=== PATIENT | female | born 1955 | race Caucasian/White ===

== ENCOUNTER 2018-12-03 12:43 | Inpatient (IN) | payer OTHER ==
[~2018-12-03] VITALS: Ht 160 cm; Wt 85.3 kg
[2018-12-03] MEDS ORDERED: SOD CHLORIDE 0.9% 1,000 ML IV STA (12:52)
[2018-12-03] MEDS ORDERED: ONDANSETRON 4 MG INJ IV STA (12:52)
[2018-12-03] MEDS ORDERED: KETOROLAC 15 MG INJ IV STA (12:52)
--- NOTE | 2018-12-03 13:59 | ERD ---
ER Documentation Chief Complaint Chief Complaint abdominal radiating to lower back HPI This is a 63-year-old female with no reported past medical history who is presenting with bilateral sharp aching pulling lower back pain radiating around the abdomen to the front. The patient's pain is exacerbated by movement. She was initially concerned about a muscle strain. But the pain became so significant that she started to develop nausea and had a few episodes of nonbilious nonbloody vomiting which was concerning to her and ultimately prompted her to come to the emergency department. The patient reports that she wanted to get back into exercise. She reportedly swam 40 laps 3 days ago, took a break 2 days ago, and then swam another 40 laps yesterday. The patient felt well after yesterday's swim session, but her symptoms started this morning after walking back to her room from the bathroom after urinating. The patient does not endorse any dysuria or hematuria or urgency or frequency. She does not endorse any constipation or diarrhea. She does not endorse any black or bloody or tarry stools. She does endorse a sensation of abdominal bloating. The patient denies feeling sick recently. The patient denies fever or chills. The patient has had no headache or vision changes. The patient does not endorse neck pain. The patient denies lightheadedness or dizziness. The patient has had no chest pain or trouble breathing. The patient has had no focal deficits. The patient has had no weakness or numbness or tingling to the face or extremities. ROS All systems reviewed and are negative except as per history of present illness. Medications Home Meds No Active Prescriptions or Reported Meds Allergies Allergies: Coded Allergies: No Known Allergy (Unverified , 12/03/18) PMhx/Soc Medical and Surgical Hx: pt denies Medical Hx, pt denies Surgical Hx History of Surgery: No Hx Neurological Disorder: No Hx Respiratory Disorders: No Hx Cardiac Disorders: No Hx Psychiatric Problems: No Hx Miscellaneous Medical Probl: No Hx Alcohol Use: No Hx Substance Use: No Hx Tobacco Use: No Smoking Status: Never smoker FmHx Family History: No diabetes Physical Exam Vitals Vital Signs Date Temp Pulse Resp B/P (MAP) Pulse Ox O2 O2 Flow FiO2 Time Delivery Rate 12/03/18 98.7 60 12 128/66 100 Room Air 16:01 (86) 12/03/18 65 20 143/77 98 Room Air 13:34 (99) 12/03/18 97.8 62 18 115/76 98 12:48 (89) Physical Exam Const: No acute distress Head: Atraumatic Eyes: Normal Conjunctiva ENT: Normal External Ears, Nose and Mouth. Neck: Full range of motion. No meningismus. Resp: Clear to auscultation bilaterally Cardio: Regular rate and rhythm, no murmurs Abd: Soft, non distended. Epigastric and right upper quadrant tenderness to palpation, mild. Normal bowel sounds Skin: No petechiae or rashes Back: No midline tenderness. Bilateral paraspinal lumbar tenderness to palpation. Ext: No cyanosis, or edema Neur: Awake and alert Psych: Normal Mood and Affect Result Diagram: 12/03/18 1306 12/03/18 1306 Results 24 hrs Laboratory Tests Test 12/03/18 13:06 12/03/18 13:21 White Blood Count 11.6 10^3/ul Red Blood Count 5.17 10^6/ul Hemoglobin 14.7 g/dl Hematocrit 43.9 % Mean Corpuscular Volume 84.9 fl Mean Corpuscular Hemoglobin 28.4 pg Mean Corpuscular Hemoglobin Concent 33.5 g/dl Red Cell Distribution Width 12.7 % Platelet Count 216 10^3/UL Mean Platelet Volume 11.3 fl Immature Granulocytes % 0.400 % Neutrophils % 79.4 % Lymphocytes % 12.2 % Monocytes % 6.6 % Eosinophils % 1.1 % Basophils % 0.3 % Nucleated Red Blood Cells % 0.0 /100WBC Immature Granulocytes # 0.050 10^3/ul Neutrophils # 9.2 10^3/ul Lymphocytes # 1.4 10^3/ul Monocytes # 0.8 10^3/ul Eosinophils # 0.1 10^3/ul Basophils # 0.0 10^3/ul Nucleated Red Blood Cells # 0.0 10^3/ul Sodium Level 142 mmol/L Potassium Level 3.2 mmol/L Chloride Level 113 mmol/L Carbon Dioxide Level 24 mmol/L Anion Gap 5 Blood Urea Nitrogen 11 mg/dl Creatinine 0.48 mg/dl Est Glomerular Filtrat Rate mL/min > 60 mL/min Glucose Level 103 mg/dl Calcium Level 7.4 mg/dl Total Bilirubin 1.4 mg/dl Direct Bilirubin 0.00 mg/dl Indirect Bilirubin 1.4 mg/dl Aspartate Amino Transf (AST/SGOT) 350 IU/L Alanine Aminotransferase (ALT/SGPT) 238 IU/L Alkaline Phosphatase 111 IU/L Creatine Kinase 85 IU/L Troponin I < 0.012 ng/ml Total Protein 6.3 g/dl Albumin 3.2 g/dl Globulin 3.10 g/dl Albumin/Globulin Ratio 1.03 Triglycerides Level 72 mg/dl Cholesterol Level 176 mg/dl LDL Cholesterol, Calculated 103 mg/dl HDL Cholesterol 59 mg/dl Cholesterol/HDL Ratio 2.9 RATIO Lipase 95025 U/L Urine Color YELLOW Urine Clarity CLEAR Urine pH 6.0 Urine Specific [place] 1.008 Urine Ketones NEGATIVE mg/dL Urine Nitrite NEGATIVE mg/dL Urine Bilirubin NEGATIVE mg/dL Urine Urobilinogen NEGATIVE mg/dL Urine Leukocyte Esterase NEGATIVE Yang/ul Urine Hemoglobin NEGATIVE mg/dL Urine Glucose NEGATIVE mg/dL Urine Total Protein NEGATIVE mg/dl Current Medications Medications Dose Sig/Tiffanie Start Time Status Last (Trade) Ordered Route PRN Stop Time Admin Dose Reason Admin Sodium 1,000 ml @ Q1H STAT 12/03/18 DC 12/03/18 Chloride 1,000 mls/hr IV 12:52 13:24 12/03/18 13:51 Ondansetron 4 mg ONCE STAT 12/03/18 DC HCl (Zofran IV 12:52 Inj) 12/03/18 12:53 Ketorolac 15 mg ONCE STAT 12/03/18 DC 12/03/18 Tromethamine IV 12:52 13:25 (Toradol) 12/03/18 12:53 Ondansetron 4 mg BRIDGE ORDER 12/03/18 HCl (Zofran PRN IV 15:30 Inj) NAUSEA/VOMITI 12/04/18 15:29 NG 650 mg ER BRIDGE 12/03/18 Hold Acetaminophen PRN PO 15:30 (Tylenol .MILD PAIN 12/04/18 15:29 Tab) 1-3 OR TEMP Sodium 1,000 ml @ Q8H IV 12/03/18 Chloride 125 mls/hr 15:16 IV Flush 3 ml PER 12/03/18 (NS 3 ml) PROTOCOL IV 15:30 Ondansetron 4 mg Q6H PRN 12/03/18 HCl (Zofran IV 15:30 Inj) NAUSEA/VOMITI NG 650 mg Q6H PRN 12/03/18 Hold Acetaminophen PO .PAIN 1-3 15:30 (Tylenol OR TEMP Tab) 1 tab Q6H PRN 12/03/18 Hold Acetaminophen PO .PAIN 4-6 15:30 / Hydrocodone Bitart ([place] (5/325)) Morphine 2 mg Q4H PRN 12/03/18 Sulfate IV .PAIN 15:30 (morphine) 7-10 40 mg DAILY@06 12/04/18 Pantoprazole IV 06:00 (Protonix Iv) Potassium 100 ml @ Q2H IVPB 12/03/18 Chloride 50 mls/hr 15:30 12/03/18 19:29 Piperacillin 100 ml @ Q6 IVPB 12/03/18 Sod/ 200 mls/hr 18:00 Tazobactam Sod Ketorolac 15 mg Q6H PRN 12/03/18 Tromethamine IM PAIN 16:00 12/06/18 (Toradol) 15:59 Procedures/MDM MDM The patient's presentation warrants further investigation. Previous medical records, if available, were reviewed. LABS The patient's laboratory testing was obtained and reviewed. No emergent treatment was required unless described below. CBC: Mild leukocytosis, likely reactive, low clinical suspicion for a systemic infection. No E/o anemia or thrombocytopenia Chemistry: Mild hypokalemia, not emergent. Transaminitis. No E/o severe acidosis or alkalosis or renal failure or diabetic ketoacidosis Lipase: E/o pancreatitis Troponin: No E/o acute ischemia Total CK: No E/o rhabdomyolysis Urine: No E/o acute infection or hematuria EKG EKG read by me: Rate/Rhythm: Regular rate and rhythm at a rate of 60 beats per minute Intervals: Normal [place]: Normal Impression: No evidence of acute ischemia or arrhythmia IMAGING Imaging and Radiology interpretation reviewed. CXR FINDINGS: No focal airspace opacification, pleural effusion or pneumothorax is seen. The cardiomediastinal silhouette is within normal limits for size. The osseous structures demonstrate senescent changes. IMPRESSION: Unremarkable chest x-ray. Electronically viewed and signed by .Deja Mora MD, on 12/03/2018 15:16 US Gall Bladder FINDINGS: The liver is normal in size measuring 15.4 cm and increased in echogenicity. There is no focal hepatic lesion. Color Doppler and pulsed Doppler sonography demonstrate normal antegrade flow in the portal vein. There is cholelithiasis. There is no gallbladder wall thickening. The bile ducts are normal with the common bile duct measuring 4 mm in diameter. The visualized portions of the pancreas are unremarkable with obscuration of the tail of the pancreas. No free fluid is present. The right kidney measures 10.1 cm. There is normal echogenicity of the right kidney. There is no perinephric fluid collection. No hydronephrosis, mass, or calculus is seen. IMPRESSION: Hepatic steatosis. Underlying hepatocellular disease cannot be excluded. Cholelithiasis. No biliary dilatation. Electronically viewed and signed by David [place] Physician on 12/03/2018 1 5:00 TREATMENT/DISPOSITION The patient presents for back pain bilaterally radiating to her abdomen. The patient endorses significant exercise over the last 2 days which is not common for her. I did have high suspicion for a musculoskeletal etiology, such as a back strain. That said, the patient also endorses abdominal pain and an abdominal work-up was completed. The patient has transaminitis and a significantly elevated lipase, concerning for pancreatitis, which is more likely to be the etiology of her symptoms today. I do feel the patient requires admission for further management of this. The patient does endorse epigastric and right upper quadrant abdominal tenderness. The patient also has a transaminitis, which could be concerning for cholestatic disease. The patient does have a hyperbilirubinemia, but it is indirect indicating mild hemolysis and not obstruction. A right upper quadrant ultrasound was completed that did reveal cholelithiasis without cholecystitis. The patient does not have any evidence of peritonitis. The patient does not have clinical symptoms concerning for mesenteric ischemia or ischemic colitis. I do not see any evidence of viscus perforation. The patient does not have any right lower quadrant tenderness, or periumbilical tenderness. I have low suspicion for appendicitis. The patient does not have suprapubic tenderness. I have decreased suspicion for cystitis. The patient does not have any left lower quadrant tenderness, and I have low suspicion for diverticulosis or diverticulitis. The patient does not have gross hematuria. I have decreased suspicion for nephrolithiasis or renal colic. The patient does not have any palpable pulsa tile mass or severe abdominal pain radiating to the back. I have low suspicion for aortic aneurysm, dissection or rupture. The patient is 63 years old with nausea and vomiting. This could be an atypical presentation of a cardiac pathology. The patient's chest xray does not reveal pneumonia or pneumothorax or pleural effusions or pulmonary edema. The patient does not have a widened mediastinum and does not have signs or symptoms concerning for thoracic aortic aneurysm or dissection. The patient does not have pneumomediastinum or signs concerning for esophageal tear or rupture. The patient has no clinical or radiographic signs of pericardial effusion or tamponade. The patient does not have pneumoperitoneum and I have decreased suspicion of viscus perforation as possible referred pain. The patient does not have a history of heart failure and I have low suspicion for this. The patient does not have a diagnosis of COPD and is not wheezing today. The patient is not tachypneic or hypoxic. The patient is breathing comfortably and without pleuritic pain. The patient is not on hormonal therapy. The patient has no history of clotting or bleeding disorders. The patient has no calf tenderness. The patient has had no hemoptysis. I have decreased suspicion for PE. The patient's troponin and EKG are reassuring. I have low suspicion for acute coronary syndrome. Given the patient's significant exercise, rhabdomyolysis was also considered. There is no evidence of renal insufficiency or renal failure. The patient's CK is unremarkable. I do not suspect this etiology at this time. The patient was treated with IV fluids, Toradol and Zofran with some improvement of her symptoms. ADMISSION At this time, I feel that the patient requires admission for further evaluation and management. The patient will be admitted to panel in accordance with the patient's insurance. The patient was accepted by Dr. Golden at 1507PM on December 03, 2018. DISCLAIMER Inadvertent spelling and grammatical errors are likely due to EHR/dictation software use and do not reflect on the overall quality of patient care. Note that the electronic time recorded on this note does not necessarily reflect the actual time of the patient encounter. Departure Diagnosis: Primary Impression: Pancreatitis Chronicity: acute Pancreatitis type: unspecified pancreatitis type Acute pancreatitis complication: unspecified Qualified Codes: K85.90 - Acute pancreatitis without necrosis or infection, unspecified Additional Impressions: Transaminitis Hyperbilirubinemia Hypokalemia Leukocytosis Leukocytosis type: unspecified Qualified Codes: D72.829 - Elevated white blood cell count, unspecified Back pain Back pain location: low back pain Chronicity: acute Back pain laterality: bilateral Sciatica presence: without sciatica Qualified Codes: M54.5 - Low back pain Abdominal pain Abdominal location: upper abdomen, unspecified Qualified Codes: R10.10 - Upper abdominal pain, unspecified Nausea & vomiting Vomiting type: unspecified Vomiting Intractability: non-intractable Qu alified Codes: R11.2 - Nausea with vomiting, unspecified Cholelithiasis Cholelithiasis location: gallbladder Cholecystitis presence: without c holecystitis Biliary obstruction: without biliary obstruction Qualified Codes: K80.20 - Calculus of gallbladder without cholecystitis without obstruction Hepatic steatosis Condition: Serious DARVIN HUSSEIN MD Dec 03, 2018 13:59
[2018-12-03] MEDS ORDERED: NACL 0.9% 3 ML SYG IV SCH (15:30)
[2018-12-03] MEDS ORDERED: ONDANSETRON 4 MG INJ IV PRN ×2 (15:30)
[2018-12-03] MEDS ORDERED: HYDROCODONE/APAP (5/325) TAB PO PRN (15:30)
[2018-12-03] MEDS ORDERED: ACETAMINOPHEN 325 MG TAB PO PRN ×2 (15:30)
--- NOTE | 2018-12-03 15:55 | HP ---
Date/Time of Note Date/Time of Note DATE: 12/03/18 TIME: 15:55 Assessment/Plan VTE Prophylaxis Pharmacological prophylaxis: other Lines/Catheters IV [facility] Type [facility] Saline Lock Assessment/Plan Hospital Course Patient is a female with past medical history who presents to [facility] for abdominal and back pain. Patient stated that approximately yesterday she began to feel diffuse bilateral lower back pain that was consistent to her previous episodes of chronic back some muscle strain. Patient had recently restarted her swimming exercises and swims 40 laps 3 days ago took a break and then swam another 40 laps yesterday. Patient subsequently had back pain and thought that this was just muscle strain as it was just like her previous pain except worse. However symptoms continue to evolve as she began to have generalized abdominal pain with some nausea and vomiting that ultimately centralized in the epigastric region of her abdomen. Patient states that her back pain is very much like her muscle strain in the past, but this abdominal pain is brand-new and she has never experienced this before. Patient denies chest pain, shortness of breath, headache, vision changes, bowel or bladder dysfunction, leg pain. Objective Physical exam General: Patient is laying in bed and answers questions appropriately Mentation: Patient is alert and oriented 4, Head: Normocephalic atraumatic Eyes: EOMI, pupils reactive to light Neck: Supple, nontender, midline Respiratory: Clear to auscultation bilaterally Cardiovascular: regular rate, no obvious murmurs Gastrointestinal: Mild epigastric region-tender to palpation, bowel sounds heard. Neurological: Moves all extremities spontaneously Skin: No new skin lesions Muscular skeletal: Minimal to no back pain upon palpation Assessment and plan Pancreatitis -Questionable gallstone pancreatitis, patient does have mildly elevated liver enzymes however direct bilirubin is not elevated and ultrasound is showing a normal common bile duct. Ultrasound however does show gallstones and this does not rule out a gallstone that has already passed through the common bile duct -Medical Office Technician, Dr. Annamarie licona, and General Surgeon, Dr. Mikie Cerrato consulted -MRCP pending -Lipase pending -Patient does drink alcohol however negligible amount -N.p.o. -IV fluid -Will initiate IV antibiotics until we know more regarding possible gallstone pancreatitis versus other etiology of pancreatitis. -Repeat lipase in a.m. Bilateral back pain -Patient states that this pain is very similar to her previous back strain injuries, patient already doing very well with IV Toradol, no opiates given and patient already feeling much better -Less likely dissection given patient's history and physical which already showing strenuous exercise that is not normal for the patient in the past few months as well as relief with Toradol and pain with movement. Patient's blood p ressure and heart rate are stable at this time however closely monitor -Pain medication as needed -If pain continues will order CT scan or MRI of the lumbar and thoracic region Electrolyte derangement -Replete as needed Elevated AST and ALT -Ultrasound showing fatty liver, may be the reason behind elevated AST ALT or may be from past gallstone, continue to monitor -GI recommendations appreciated Mild hypocalcemia -After albumin correction patient's calcium is in the low 8 range, which is near normal, will monitor closely for now and supplement if needed, further work-up if persistently low or lowers. Disposition -Follow-up with GI and general surgery recommendations, pending MRCP. Result Diagram: 12/03/18 1306 12/03/18 1306 Results 24hrs Laboratory Tests Test 12/03/18 13:06 12/03/18 13:21 White Blood Count 11.6 H Red Blood Count 5.17 Hemoglobin 14.7 Hematocrit 43.9 Mean Corpuscular Volume 84.9 Mean Corpuscular Hemoglobin 28.4 L Mean Corpuscular Hemoglobin Concent 33.5 Red Cell Distribution Width 12.7 Platelet Count 216 Mean Platelet Volume 11.3 H Immature Granulocytes % 0.400 Neutrophils % 79.4 H Lymphocytes % 12.2 L Monocytes % 6.6 Eosinophils % 1.1 Basophils % 0.3 Nucleated Red Blood Cells % 0.0 Immature Granulocytes # 0.050 H Neutrophils # 9.2 H Lymphocytes # 1.4 Monocytes # 0.8 Eosinophils # 0.1 Basophils # 0.0 Nucleated Red Blood Cells # 0.0 Sodium Level 142 Potassium Level 3.2 L Chloride Level 113 H Carbon Dioxide Level 24 Anion Gap 5 Blood Urea Nitrogen 11 Creatinine 0.48 Est Glomerular Filtrat Rate mL/min > 60 Glucose Level 103 Calcium Level 7.4 L Total Bilirubin 1.4 H Direct Bilirubin 0.00 Indirect Bilirubin 1.4 H Aspartate Amino Transf (AST/SGOT) 350 H Alanine Aminotransferase (ALT/SGPT) 238 H Alkaline Phosphatase 111 Creatine Kinase 85 Troponin I < 0.012 Total Protein 6.3 Albumin 3.2 L Globulin 3.10 Albumin/Globulin Ratio 1.03 Lipase 64850 H Urine Color YELLOW Urine Clarity CLEAR Urine pH 6.0 Urine Specific [place] 1.008 Urine Ketones NEGATIVE Urine Nitrite NEGATIVE Urine Bilirubin NEGATIVE Urine Urobilinogen NEGATIVE Urine Leukocyte Esterase NEGATIVE Urine Hemoglobin NEGATIVE Urine Glucose NEGATIVE Urine Total Protein NEGATIVE HPI/ROS Admit Date/Time Admit Date/Time PMH/Family/Social Past Medical History Medications Current Medications Ondansetron HCl (Zofran Inj) 4 mg BRIDGE ORDER PRN IV NAUSEA/VOMITING; Start 12/03/18 at 15:30; Stop 12/04/18 at 15:29 Acetaminophen (Tylenol Tab) 650 mg ER BRIDGE PRN PO .MILD PAIN 1-3 OR TEMP; Start 12/03/18 at 15:30; Stop 12/04/18 at 15:29 Coded Allergies: No Known Allergy (Unverified , 12/03/18) Social History Smoking Status: Never smoker Exam/Review of Systems Vital Signs Vitals Vital Signs Date Temp Pulse Resp B/P (MAP) Pulse Ox O2 O2 Flow FiO2 Time Delivery Rate 12/03/18 65 20 143/77 98 Room Air 13:34 (99) 12/03/18 97.8 12:48 NANETTE BRAGG Dec 03, 2018 15:55
[2018-12-03] MEDS ORDERED: KETOROLAC 15 MG INJ IM PRN (16:00)
[2018-12-03] MEDS: SOD CHLORIDE 0.9% 1,000 ML IV SCH ×2 (17:40→23:16)
[2018-12-03] MEDS: POTASSIUM CHLORIDE 100 ML IVPB SCH ×2 (17:40→21:52)
[2018-12-03] MEDS: PIPER-TAZO 3.375 GM IV (PMX) 100 ML IVPB SCH ×2 (18:30→23:38)
[2018-12-03 21:00] VITALS: BP 140/65; PULSE 56; RESP 18
[2018-12-03] MEDS: morphine 2 MG INJ IV PRN (21:48)
[2018-12-03 22:03] VITALS: Ht 160 cm; Wt 85.3 kg
[2018-12-04 03:26] VITALS: BP 106/60; PULSE 55; RESP 18
[2018-12-04] MEDS: PANTOPRAZOLE 40 MG INJ IV SCH (05:30)
[2018-12-04] MEDS: PIPER-TAZO 3.375 GM IV (PMX) 100 ML IVPB SCH ×2 (05:30→13:04)
[2018-12-04] MEDS: SOD CHLORIDE 0.9% 1,000 ML IV SCH ×3 (06:51→23:16)
[2018-12-04 07:55] VITALS: BP 105/61; PULSE 58; RESP 20
[2018-12-04] MEDS: morphine 2 MG INJ IV PRN (08:31)
--- NOTE | 2018-12-04 14:35 | CONS ---
Assessment/Plan Assessment/Plan Hospital Course (Demo Recall) Summary Assessment and Plan: Assessment: Acute pancreatitis -Query gallstone induced with possible stone passage -MRCP negative for choledocholithiasis -HIDA scan shows unremarkable HIDA scan Transaminitis with indirect hyperbilirubinemia Cholelithiasis Liver lesion Plan: Monitor labs Spoke to Radiologist per recommendations- will order MRI with liver protocol to further characterize liver lesion IV fluid, pain management Patient seen in collaboration with Dr. Sanderson CC: BARBARA SANDERSON MD ; Consultation Date/Type/Reason Admit Date/Time Date of Consultation: Dec 04, 2018 Type of Consult GI Reason for Consultation Acute pancreatitis Elevated LFTs Date/Time of Note DATE: 12/04/18 TIME: 14:21 Hx of Present Illness This is a 63-year-old female who presented to the hospital with complaints of bilateral lower back pain she initially thought was secondary to muscle strain however pain progressed and transition to generalized abdominal pain associated with nausea and vomiting. With work-up in the ED patient found to have elevated lipase with transaminitis and and direct hyperbilirubinemia on initial presentation patient had mild leukocytosis which has since resolved. A chest x- ray was obtained showing unremarkable chest x-ray. An MRCP was obtained which was negative for choledocholithiasis or biliary ductal dilation. There was moderate elver-pancreatic edema. As well as cholelithiasis with a mild nonspecif ic gallbladder wall thickening. Additionally she had a HIDA scan completed today impression states unremarkable HIDA scan Review of Systems: A 12 system, review was conducted and is negative except as noted in the HPI or here. Past Medical History Home Meds No Active Prescriptions or Reported Meds Medications Current Medications Ondansetron HCl (Zofran Inj) 4 mg BRIDGE ORDER PRN IV NAUSEA/VOMITING; Start 12/03/18 at 15:30; Stop 12/04/18 at 15:29 Acetaminophen (Tylenol Tab) 650 mg ER BRIDGE PRN PO .MILD PAIN 1-3 OR TEMP; Start 12/03/18 at 15:30; Stop 12/04/18 at 15:29; Status Hold Sodium Chloride 1,000 ml @ 125 mls/hr Q8H IV Last administered on 12/04/18at 13:14; Admin Dose 125 MLS/HR; Start 12/03/18 at 15:16 IV Flush (NS 3 ml) 3 ml PER PROTOCOL IV ; Start 12/03/18 at 15:30 Ondansetron HCl (Zofran Inj) 4 mg Q6H PRN IV NAUSEA/VOMITING; Start 12/03/18 at 15:30 Acetaminophen (Tylenol Tab) 650 mg Q6H PRN PO .PAIN 1-3 OR TEMP; Start 12/03/18 at 15:30; Status Hold Acetaminophen/ Hydrocodone Bitart ([place] (5/325)) 1 tab Q6H PRN PO .PAIN 4-6; Start 12/03/18 at 15:30; Status Hold Morphine Sulfate (morphine) 2 mg Q4H PRN IV .PAIN 7-10 Last administered on 12/04/18at 08:31; Admin Dose 2 MG; Start 12/03/18 at 15:30 Pantoprazole (Protonix Iv) 40 mg DAILY@06 IV Last administered on 12/04/18at 05:30; Admin Dose 40 MG; Start 12/04/18 at 06:00 Piperacillin Sod/ Tazobactam Sod 100 ml @ 200 mls/hr Q6 IVPB Last administered on 12/04/18at 13:04; Admin Dose 200 MLS/HR; Start 12/03/18 at 18:00 Ketorolac Tromethamine (Toradol) 15 mg Q6H PRN IM PAIN Last administered on 12/03/18at 17:30; Admin Dose 15 MG; Start 12/03/18 at 16:00; Stop 12/06/18 at 15:59 Allergies: Coded Allergies: No Known Allergy (Unverified , 12/03/18) Social History Smoking Status: Former smoker Exam/Review of Systems Exam Vitals Vital Signs Date Temp Pulse Resp B/P (MAP) Pulse Ox O2 O2 Flow FiO2 Time Delivery Rate 12/04/18 98.2 58 20 105/61 98 07:55 (76) 12/04/18 Room Air 03:26 Intake and Output 12/03/18 12/03/18 12/04/18 1515:00 23:00 07:00 IntakeIntake Total 850 ml BalanceBalance 850 ml Exam PHYSICAL EXAMINATION: GENERAL: Well developed, well nourished, alert & oriented x 3, in no acute distress SKIN: No lesions HEAD: Normocephalic, atraumatic, no tenderness. EYES: Pupils equal reactive to light, no discharge. EARS/NOSE AND THROAT: Ears normal, nose normal. NECK: Supple, no masses CHEST: Inspection within normal limits. CARDIOVASCULAR: Heart: Regular rate and rhythm RESPIRATORY: Lungs clear to auscultation GASTROINTESTINAL AND LIVER: Abdomen: Soft, non tenderness, non-distended, no hernias, no masses, no organomegaly, no ascites, no guarding, no rebound tenderness, normoactive bowel sounds. Rectal: Deferred. EXTREMITIES: No cyanosis, clubbing or edema. Results Result Diagram: 12/04/18 0437 12/04/18 0437 Results 24hrs Laboratory Tests Test 12/04/18 04:37 White Blood Count 7.3 # Red Blood Count 4.60 Hemoglobin 13.0 Hematocrit 40.2 Mean Corpuscular Volume 87.4 Mean Corpuscular Hemoglobin 28.3 L Mean Corpuscular Hemoglobin Concent 32.3 Red Cell Distribution Width 13.1 Platelet Count 193 Mean Platelet Volume 12.2 H Immature Granulocytes % 0.300 Neutrophils % 70.5 Lymphocytes % 19.6 Monocytes % 7.0 Eosinophils % 2.2 Basophils % 0.4 Nucleated Red Blood Cells % 0.0 Immature Granulocytes # 0.020 Neutrophils # 5.1 Lymphocytes # 1.4 Monocytes # 0.5 Eosinophils # 0.2 Basophils # 0.0 Nucleated Red Blood Cells # 0.0 Sodium Level 143 Potassium Level 4.0 Chloride Level 114 H Carbon Dioxide Level 25 Anion Gap 4 L Blood Urea Nitrogen 12 Creatinine 0.64 Est Glomerular Filtrat Rate mL/min > 60 Glucose Level 92 Hemoglobin A1c 5.3 Calcium Level 8.2 L Magnesium Level 2.1 Total Bilirubin 1.9 H Direct Bilirubin 0.00 Indirect Bilirubin 1.9 H Aspartate Amino Transf (AST/SGOT) 275 H Alanine Aminotransferase (ALT/SGPT) 342 H Alkaline Phosphatase 119 Total Protein 6.3 Albumin 3.3 Globulin 3.00 Albumin/Globulin Ratio 1.10 Lipase 1513 H Thyroid Stimulating Hormone (TSH) 2.050 Medications Medication Current Medications Ondansetron HCl (Zofran Inj) 4 mg BRIDGE ORDER PRN IV NAUSEA/VOMITING; Start 12/03/18 at 15:30; Stop 12/04/18 at 15:29 Acetaminophen (Tylenol Tab) 650 mg ER BRIDGE PRN PO .MILD PAIN 1-3 OR TEMP; Start 12/03/18 at 15:30; Stop 12/04/18 at 15:29; Status Hold Sodium Chloride 1,000 ml @ 125 mls/hr Q8H IV Last administered on 12/04/18at 13:14; Admin Dose 125 MLS/HR; Start 12/03/18 at 15:16 IV Flush (NS 3 ml) 3 ml PER PROTOCOL IV ; Start 12/03/18 at 15:30 Ondansetron HCl (Zofran Inj) 4 mg Q6H PRN IV NAUSEA/VOMITING; Start 12/03/18 at 15:30 Acetaminophen (Tylenol Tab) 650 mg Q6H PRN PO .PAIN 1-3 OR TEMP; Start 12/03/18 at 15:30; Status Hold Acetaminophen/ Hydrocodone Bitart ([place] (5/325)) 1 tab Q6H PRN PO .PAIN 4-6; Start 12/03/18 at 15:30; Status Hold Morphine Sulfate (morphine) 2 mg Q4H PRN IV .PAIN 7-10 Last administered on 12/04/18at 08:31; Admin Dose 2 MG; Start 12/03/18 at 15:30 Pantoprazole (Protonix Iv) 40 mg DAILY@06 IV Last administered on 12/04/18at 05:30; Admin Dose 40 MG; Start 12/04/18 at 06:00 Piperacillin Sod/ Tazobactam Sod 100 ml @ 200 mls/hr Q6 IVPB Last administered on 12/04/18at 13:04; Admin Dose 200 MLS/HR; Start 12/03/18 at 18:00 Ketorolac Tromethamine (Toradol) 15 mg Q6H PRN IM PAIN Last administered on 12/03/18at 17:30; Admin Dose 15 MG; Start 12/03/18 at 16:00; Stop 12/06/18 at 15:59 AMBROCIO CHRISTINA Dec 04, 2018 14:33
--- NOTE | 2018-12-04 14:42 | PN ---
Date/Time of Note Date/Time of Note DATE: 12/04/18 TIME: 14:36 Objective Vitals Vital Signs Date Temp Pulse Resp B/P (MAP) Pulse Ox O2 O2 Flow FiO2 Time Delivery Rate 12/04/18 98.2 58 20 105/61 98 07:55 (76) 12/04/18 Room Air 03:26 Intake and Output 12/03/18 12/03/18 12/04/18 1515:00 23:00 07:00 IntakeIntake Total 850 ml BalanceBalance 850 ml Results Result Diagram: 12/04/18 0437 12/04/18 0437 Medications Medications Current Medications Ondansetron HCl (Zofran Inj) 4 mg BRIDGE ORDER PRN IV NAUSEA/VOMITING; Start 12/03/18 at 15:30; Stop 12/04/18 at 15:29 Acetaminophen (Tylenol Tab) 650 mg ER BRIDGE PRN PO .MILD PAIN 1-3 OR TEMP; Start 12/03/18 at 15:30; Stop 12/04/18 at 15:29; Status Hold Sodium Chloride 1,000 ml @ 125 mls/hr Q8H IV Last administered on 12/04/18at 13:14; Admin Dose 125 MLS/HR; Start 12/03/18 at 15:16 IV Flush (NS 3 ml) 3 ml PER PROTOCOL IV ; Start 12/03/18 at 15:30 Ondansetron HCl (Zofran Inj) 4 mg Q6H PRN IV NAUSEA/VOMITING; Start 12/03/18 at 15:30 Acetaminophen (Tylenol Tab) 650 mg Q6H PRN PO .PAIN 1-3 OR TEMP; Start 12/03/18 at 15:30; Status Hold Acetaminophen/ Hydrocodone Bitart ([place] (5/325)) 1 tab Q6H PRN PO .PAIN 4-6; Start 12/03/18 at 15:30; Status Hold Morphine Sulfate (morphine) 2 mg Q4H PRN IV .PAIN 7-10 Last administered on 12/04/18at 08:31; Admin Dose 2 MG; Start 12/03/18 at 15:30 Pantoprazole (Protonix Iv) 40 mg DAILY@06 IV Last administered on 12/04/18at 05:30; Admin Dose 40 MG; Start 12/04/18 at 06:00 Piperacillin Sod/ Tazobactam Sod 100 ml @ 200 mls/hr Q6 IVPB Last administered on 12/04/18at 13:04; Admin Dose 200 MLS/HR; Start 12/03/18 at 18:00 Ketorolac Tromethamine (Toradol) 15 mg Q6H PRN IM PAIN Last administered on at 17:30; Admin Dose 15 MG; Start 12/03/18 at 16:00; Stop 12/06/18 at 15:59 Lines/Catheters IV Catheter Type: Ken in Place: No Assessment/Plan Hospital Course Subjective Patient feeling well, minimal to no abdominal pain, no nausea Objective Physical exam General: Patient is laying in bed and answers questions appropriately Mentation: Patient is alert and oriented 4, Head: Normocephalic atraumatic Eyes: EOMI, pupils reactive to light Neck: Supple, nontender, midline Respiratory: Clear to auscultation bilaterally Cardiovascular: regular rate, no obvious murmurs Gastrointestinal: no tenderness to palpation, bowel sounds heard. Neurological: Moves all extremities spontaneously Skin: No new skin lesions Muscular skeletal: Minimal to no back pain upon palpation Assessment and plan Pancreatitis -Resolving -No nausea, vomiting, minimal to no abdominal pain -We will attempt clears -MRCP negative for choledocholithiasis -HIDA negative for cholecystitis -DC antibiotics -DC IV fluids when patient having decent oral intake Bilateral back pain -Likely secondary to muscle strain as patient recently swam over 80 laps in a pool -Pain medication as needed -Oxycodone as needed for now until more is known about patient's elevated AST and ALT Electrolyte derangement -Replete as needed Elevated AST and ALT -Fatty liver seen on ultrasound -Hepatitis panel pending -GI ordered MRI Mild hypocalcemia -After albumin correction patient's calcium is in the low 8 range, which is near normal, will monitor closely for now and supplement if needed, further work-up if persistently low or lowers. Disposition -Clears for now, pending MRI NANETTE BRAGG Dec 04, 2018 14:41
[2018-12-04] MEDS ORDERED: oxyCODONE 5 MG TAB PO PRN (15:00)
[2018-12-04 19:24] VITALS: BP 131/80; PULSE 55; RESP 18
[2018-12-05] MEDS: PANTOPRAZOLE 40 MG INJ IV SCH (05:58)
[2018-12-05] MEDS: SOD CHLORIDE 0.9% 1,000 ML IV SCH (06:26)
[2018-12-05 07:16] VITALS: BP 103/62; PULSE 58; RESP 16
--- NOTE | 2018-12-05 14:19 | PN ---
Date/Time of Note Date/Time of Note DATE: 12/05/18 TIME: 14:09 Assessment/Plan VTE Prophylaxis Risk score (from Ns)>0 risk: 3 SCD applied (from Ns): Yes Pharmacological prophylaxis: NA/contraindicated Pharm contraindication: low risk/ambulating Lines/Catheters IV [facility] (from [facility] Peripheral IV Urinary Cath still in place: No Assessment/Plan Hospital Course Summary Assessment and Plan: Assessment: Acute pancreatitis -Query gallstone induced with possible stone passage -MRCP negative for choledocholithiasis -HIDA scan shows unremarkable HIDA scan Transaminitis- improving with indirect hyperbilirubinemia- resolved Cholelithiasis Liver lesion -MRI with liver protocol- Hepatic dome lesion consistent with a minimally complex cyst. Plan: Diet as tolerated Recommend repeat imaging in 3-6 months- with lover protocol Pt to f/u with GI after d/c - as she will also need colonoscopy screening Patient seen in collaboration with Dr. Sanderson Subjective: Course reviewed with nursing staff Patient interviewed and examined All labs, imaging and other results reviewed The patient feels well, tolerating regular diet well, no c/o nausea or vomiting i reviewed MRI results with patient and recommendations. She verbalized understanding Exam PHYSICAL EXAMINATION: GENERAL: Well developed, well nourished, alert & oriented x 3, in no acute distress SKIN: No lesions HEAD: Normocephalic, atraumatic, no tenderness. EYES: Pupils equal reactive to light, no discharge. EARS/NOSE AND THROAT: Ears normal, nose normal. NECK: Supple, no masses CHEST: Inspection within normal limits. CARDIOVASCULAR: Heart: Regular rate and rhythm RESPIRATORY: Lungs clear to auscultation GASTROINTESTINAL AND LIVER: Abdomen: Soft, non tenderness, non-distended, no hernias, no masses, no organomegaly, no ascites, no guarding, no rebound tenderness, normoactive bowel sounds. Rectal: Deferred. EXTREMITIES: No cyanosis, clubbing or edema. Result Diagram: 12/05/18 0504 12/05/18 0504 Results 24hrs Laboratory Tests Test 12/04/18 14:33 12/04/18 14:45 12/05/18 05:04 12/05/18 05:08 Hepatitis B Surface NEGATIVE NEGATIVE Antigen Hepatitis B Core NEGATIVE NEGATIVE Total Antibody Hepatitis C NEGATIVE NEGATIVE Antibody Prothrombin Time 13.9 Prothrombin Time 1.1 Ratio INR International 1.06 Normalized Ratio Hepatitis A IgM NON-REACTIVE Antibody Hepatitis A NEGATIVE Antibody Total White Blood Count 8.0 Red Blood Count 4.33 Hemoglobin 12.2 Hematocrit 38.0 Mean Corpuscular 87.8 Volume Mean Corpuscular 28.2 L Hemoglobin Mean Corpuscular 32.1 Hemoglobin Concent Red Cell 12.7 Distribution Width Platelet Count 180 Mean Platelet 11.7 H Volume Immature 0.400 Granulocytes % Neutrophils % 57.1 Lymphocytes % 29.5 Monocytes % 8.7 Eosinophils % 3.9 Basophils % 0.4 Nucleated Red Blood 0.0 Cells % Immature 0.030 Granulocytes # Neutrophils # 4.6 Lymphocytes # 2.4 Monocytes # 0.7 Eosinophils # 0.3 Basophils # 0.0 Nucleated Red Blood 0.0 Cells # Sodium Level 137 Potassium Level 3.9 Chloride Level 107 Carbon Dioxide 26 Level Anion Gap 4 L Blood Urea Nitrogen 12 Creatinine 0.60 Est Glomerular > 60 Filtrat Rate mL/min Glucose Level 97 Calcium Level 8.6 Total Bilirubin 1.0 Direct Bilirubin 0.00 Indirect Bilirubin 1.0 Aspartate Amino 102 H Transf (AST/SGOT) Alanine 205 H Aminotransferase (A LT/SGPT) Alkaline 104 Phosphatase Total Protein 5.8 L Albumin 3.2 L Globulin 2.60 Albumin/Globulin 1.23 Ratio Alpha Fetoprotein 1.87 Exam/Review of Systems Exam Vitals Vital Signs Date Temp Pulse Resp B/P (MAP) Pulse Ox O2 O2 Flow FiO2 Time Delivery Rate 12/05/18 98.6 58 16 103/62 100 Room Air 07:16 (76) Intake and Output 12/04/18 12/04/18 12/05/18 1515:00 23:00 07:00 IntakeIntake Total 550 ml 500 ml 500 ml BalanceBalance 550 ml 500 ml 500 ml Results Results 24hrs Laboratory Tests Test 12/04/18 14:33 12/04/18 14:45 12/05/18 05:04 12/05/18 05:08 Hepatitis B Surface NEGATIVE NEGATIVE Antigen Hepatitis B Core NEGATIVE NEGATIVE Total Antibody Hepatitis C NEGATIVE NEGATIVE Antibody Prothrombin Time 13.9 Prothrombin Time 1.1 Ratio INR International 1.06 Normalized Ratio Hepatitis A IgM NON-REACTIVE Antibody Hepatitis A NEGATIVE Antibody Total White Blood Count 8.0 Red Blood Count 4.33 Hemoglobin 12.2 Hematocrit 38.0 Mean Corpuscular 87.8 Volume Mean Corpuscular 28.2 L Hemoglobin Mean Corpuscular 32.1 Hemoglobin Concent Red Cell 12.7 Distribution Width Platelet Count 180 Mean Platelet 11.7 H Volume Immature 0.400 Granulocytes % Neutrophils % 57.1 Lymphocytes % 29.5 Monocytes % 8.7 Eosinophils % 3.9 Basophils % 0.4 Nucleated Red Blood 0.0 Cells % Immature 0.030 Granulocytes # Neutrophils # 4.6 Lymphocytes # 2.4 Monocytes # 0.7 Eosinophils # 0.3 Basophils # 0.0 Nucleated Red Blood 0.0 Cells # Sodium Level 137 Potassium Level 3.9 Chloride Level 107 Carbon Dioxide 26 Level Anion Gap 4 L Blood Urea Nitrogen 12 Creatinine 0.60 Est Glomerular > 60 Filtrat Rate mL/min Glucose Level 97 Calcium Level 8.6 Total Bilirubin 1.0 Direct Bilirubin 0.00 Indirect Bilirubin 1.0 Aspartate Amino 102 H Transf (AST/SGOT) Alanine 205 H Aminotransferase (A LT/SGPT) Alkaline 104 Phosphatase Total Protein 5.8 L Albumin 3.2 L Globulin 2.60 Albumin/Globulin 1.23 Ratio Alpha Fetoprotein 1.87 Medications Medication Current Medications Sodium Chloride 1,000 ml @ 125 mls/hr Q8H IV Last administered on 12/04/18at 13:14; Admin Dose 125 MLS/HR; Start 12/03/18 at 15:16 IV Flush (NS 3 ml) 3 ml PER PROTOCOL IV ; Start 12/03/18 at 15:30 Ondansetron HCl (Zofran Inj) 4 mg Q6H PRN IV NAUSEA/VOMITING; Start 12/03/18 at 15:30 Acetaminophen (Tylenol Tab) 650 mg Q6H PRN PO .PAIN 1-3 OR TEMP; Start 12/03/18 at 15:30; Status Hold Morphine Sulfate (morphine) 2 mg Q4H PRN IV .PAIN 7-10 Last administered on 12/04/18at 08:31; Admin Dose 2 MG; Start 12/03/18 at 15:30 Pantoprazole (Protonix Iv) 40 mg DAILY@06 IV Last administered on 12/05/18at 05:58; Admin Dose 40 MG; Start 12/04/18 at 06:00 Ketorolac Tromethamine (Toradol) 15 mg Q6H PRN IM PAIN Last administered on 12/03/18at 17:30; Admin Dose 15 MG; Start 12/03/18 at 16:00; Stop 12/06/18 at 15:59 Oxycodone HCl (Roxicodone) 5 mg Q4H PRN PO MODERATE PAIN LEVEL 4-6 Last administered on 12/04/18at 23:45; Admin Dose 5 MG; Start 12/04/18 at 15:00 AMBROCIO CHRISTINA Dec 05, 2018 14:19
--- NOTE | 2018-12-05 15:17 | PDOCDIS ---
Discharge Instructions CONDITION [id number] Patient Condition: [id number] Stable FOLLOW UP/APPOINTMENTS Follow-up Plan 1. Please follow-up with your primary care provider in order to get a referral to both a general surgeon as well as seam checker. Please let him know you have been diagnosed with pancreatitis. 2. Please follow-up with a general surgeon for elective cholecystectomy as you have been diagnosed with gallstones but no active gallbladder infection or bile duct blockage 3. Please follow-up with a seam checker in order for a repeat MRI of your likely cyst in your liver within 3 to 6 months with liver protocol as well as a routine colonoscopy for colon cancer. NANETTE BRAGG Dec 05, 2018 15:17
--- NOTE | 2018-12-05 15:21 | DS ---
Date/Time of Note Date/Time of Note DATE: 12/05/18 TIME: 15:21 Discharge Summary Admission/Discharge Info Admit Date/Time Dec 03, 2018 at 15:11 Discharge Date/Time Patient Condition: Stable Hospital Course Patient is a female with no significant past medical history who presents to [facility] for epigastric pain as well as back pain. Patient was diagnosed with pancreatitis and seen by both pipe racker and general surgeon. Patient's pancreatitis quickly resolved and patient was started on diet which she tolerated very well. Of note patient did have elevated liver enzymes however both MRCP, ultrasound, and abdominal MRI were all negative for choledocholithiasis. Patient is symptom-free at this time and back pain has also significantly improved which she got due to swimming recently 80 labs after being inactive for quite some time. Patient knows to follow-up with a general surgeon for elective cholecystectomy as she has been diagnosed with gallstones. Patient also knows to follow-up with GI for repeat MRI in 3 to 6 months for her liver cyst as well as getting a routine colonoscopy. Patient has not needed pain medication and will be discharged since last night with [id number] medications, was instructed to stay away from acetaminophen. Patient elevated AST and ALT and bilirubin have resolved significantly and patient will follow up with her primary care provider for repeat lab work. Discharge diagnosis Pancreatitis, resolved Bilateral back pain, muscle spasm, resolving, not needing pain medication Electronic derangement, resolving Elevated AST and ALT, resolving Elevated bilirubin, resolved Hypocalcemia, resolved Home Meds No Active Prescriptions or Reported Meds Follow-up Plan 1. Please follow-up with your primary care provider in order to get a referral to both a general surgeon as well as pipe racker. Please let him know you have been diagnosed with pancreatitis. 2. Please follow-up with a general surgeon for elective cholecystectomy as you have been diagnosed with gallstones but no active gallbladder infection or bile duct blockage 3. Please follow-up with a pipe racker in order for a repeat MRI of your likely cyst in your liver within 3 to 6 months with liver protocol as well as a routine colonoscopy for colon cancer. Primary Care Provider [facility] Time spent on discharge: > 30 minutes Pending Labs Laboratory Tests Test 12/05/18 05:04 12/05/18 05:08 White Blood Count 8.0 10^3/ul (4.8-10.8) Red Blood Count 4.33 10^6/ul (4.20-5.40) Hemoglobin 12.2 g/dl (12.0-16.0) Hematocrit 38.0 % (37.0-47.0) Mean Corpuscular Volume 87.8 fl (82.0-101.0) Mean Corpuscular Hemoglobin 28.2 pg (29.0-33.0) Mean Corpuscular 32.1 g/dl (32.0-37.0) Hemoglobin Concent Red Cell Distribution Width 12.7 % (11.5-14.5) Platelet Count 180 10^3/UL (140-415) Mean Platelet Volume 11.7 fl (7.4-10.4) Immature Granulocytes % 0.400 % (0.001-0.429) Neutrophils % 57.1 % (39.0-77.0) Lymphocytes % 29.5 % (15.0-51.0) Monocytes % 8.7 % (0.0-11.0) Eosinophils % 3.9 % (0.0-7.0) Basophils % 0.4 % (0.0-2.0) Nucleated Red Blood Cells % 0.0 /100WBC (0.0-0.0) Immature Granulocytes # 0.030 10^3/ul (0.0-0.031) Neutrophils # 4.6 10^3/ul (1.6-7.5) Lymphocytes # 2.4 10^3/ul (0.8-2.9) Monocytes # 0.7 10^3/ul (0.3-0.9) Eosinophils # 0.3 10^3/ul (0.0-0.5) Basophils # 0.0 10^3/ul (0.0-0.1) Nucleated Red Blood Cells # 0.0 10^3/ul (0.0-0.0) Sodium Level 137 mmol/L (135-144) Potassium Level 3.9 mmol/L (3.5-5.1) Chloride Level 107 mmol/L (97-110) Carbon Dioxide Level 26 mmol/L (21-31) Anion Gap 4 (5-13) Blood Urea Nitrogen 12 mg/dl (7-20) Creatinine 0.60 mg/dl (0.44-1.00) Est Glomerular Filtrat > 60 mL/min (>60) Rate mL/min Glucose Level 97 mg/dl (70-220) Calcium Level 8.6 mg/dl (8.4-10.2) Total Bilirubin 1.0 mg/dl (0.2-1.3) Direct Bilirubin 0.00 mg/dl (0.00-0.20) Indirect Bilirubin 1.0 mg/dl (0-1.1) Aspartate Amino 102 IU/L (15-46) Transf (AST/SGOT) Alanine 205 IU/L (13-69) Aminotransferase (ALT/SGPT) Alkaline Phosphatase 104 IU/L (42-121) Total Protein 5.8 g/dl (6.1-8.1) Albumin 3.2 g/dl (3.3-4.9) Globulin 2.60 g/dl (1.3-3.2) Albumin/Globulin Ratio 1.23 Alpha Fetoprotein 1.87 IU/L (0.00-7.21) NANETTE BRAGG Dec 05, 2018 15:21
[2018-12-05 16:05] VITALS: BP 128/75; PULSE 63; RESP 16
== END 2018-12-05 16:55 | disposition home or self-care (01) | DRG 440 ==
LOC: E/R 12:43 → SUATTDRO 15:10 → MS1 15:11
PROVIDERS: ADMIT Internal Medicine; ATTEND Internal Medicine
DX: K85.90 Acute pancreatitis without necrosis or infection, unspecified (principal); M62.830 Muscle spasm of back; K80.20 Calculus of gallbladder without cholecystitis without obstruction; E83.51 Hypocalcemia; K76.89 Other specified diseases of liver; E87.8 Other disorders of electrolyte and fluid balance, not elsewhere classified
CPT/HCPCS: 36415; 71045; 74181; 74182; 76705; 78226; 80053; 80061; 81003; 82105; 82550; 83036; 83690; 83735; 84443; 84484; 85025; 85610; 86704; 86708; 86709; 86803; 87340; 93005; 96374; A9537; C9113; J1885; J2270; J2405; J2543; J3480; J7030